=== PATIENT | female | born 1980 | race Caucasian/White ===

== ENCOUNTER 2017-06-28 18:47 | Emergency (ER) | payer MEDICAID, SELFPAY ==
[2017-06-28 18:48] VITALS: BP 130/69; PULSE 88; RESP 18; TEMP 37.2; O2SAT 96; BMI 43.0
--- NOTE | 2017-06-28 19:46 | RAD_ITS ---
STUDY: X-RAY - RIGHT ANKLE REASON FOR EXAM: Female, 37 years old. PT C/O RIGHT LEG INJURY THAT HAPPENED ON 06/15. PT WAS SEEN AT HOSPITAL IN [place] IMMEDIATELY AFTER FALL AND DIAGNOSED WITH TIBIA FRACTURE. PT WAS GIVEN WALKING BOOT AND STATES HER FOOT WON'T FIT IN IT ANYMORE. TECHNIQUE: 3 view(s) of the ankle. COMPARISON: None. FINDINGS: Normal visualized distal tibia. There is an oblique fracture of the distal fibula. Normal medial malleoli. Normal tibiotalar articulation and ankle mortise. There is a calcaneal spur. The visualized subtalar, talonavicular, calcaneocuboid and tarsal articulations are normal. There is soft tissue swelling around the ankle. RAD/Ankle min 3 Views IMPRESSION: There is an oblique fracture of the distal fibula. There is soft tissue swelling around the ankle. Electronically Signed: Mahin Ballard MD at 20:11 EDT , Service support ,
[2017-06-28] MEDS: Ibuprofen 200 MG Tablet 800 MG PO (19:56)
[2017-06-28] MEDS: HYDROcodone Bitartrate/Apap 5/325 Tablet PO (21:57)
--- NOTE | 2017-06-28 23:20 | ED.DCSUM_ITS ---
- ER Visit Summary Date of Service: 06/28/17 Chief Complaint: Right ankle pain History of Present Illness: The patient is a 37 F who presents with right ankle pain that has been getting worse over the past 2 weeks. Patient states she was diagnosed with a fracture of her ankle on June 15. Patient states that she was placed in a walking boot but the walking boot was not fitting properly. Patient states that she has been at home over the last 2 weeks but there has been family from out of town staying with her and children are bumping her ankle causing more pain. Patient states the pain is worse with any movement. Patient denies any paresthesias or weakness. Physical Examination: Vital signs are stable. Patient is afebrile. Patient is in no acute distress. Musculoskeletal exam reveals tenderness over the medial and lateral malleoli of the right ankle. There is no deformity noted. There is edema and ecchymosis noted. Range of motion was limited all motions of the right ankle secondary to pain. Sensation was intact to light touch in all digits. Capillary refill is less than 2 seconds in all digits. The remaining physical exam is within normal limits. Test Results: Trace of the right ankle revealed a fracture of the distal fibula. Emergency Department Course and Treatment: Patient was given a dose of [place] here. A well-padded Ortho-Glass sugar tong splint was applied to the right lower extremity. Patient was instructed to ice and elevate the right ankle. Patient was instructed to follow-up with her orthopedist as scheduled. Patient was given a prescription for a short course of [place]. Patient and family understood and were agreeable with the plan. All questions were answered. Disposition: Discharge home Impression: Right distal fibula fracture This note was generated with [employer] dictation software. It may contain incorrect words, spelling, and punctuation that were not noted in review of the chart prior to signing ED Disposition - Plan for ED Patient: Disposition: Home or Assisted Living Chief Complaint: Lower Extremity Injury Diagnosis: Fracture of distal end of right fibula Instructions: ED Fx Lower Ext Prescriptions: Hydrocodone Bitart/Apap 5-325 [[place] 5/325] 1 tab PO Q6H PRN PRN 5 Days #20 tab PRN Reason: Pain Referrals: Care Physician,No Primary [Primary Care Provider] -
[2017-06-28 23:33] VITALS: RESP 16
--- NOTE | 2017-06-28 23:34 | ED.RN ---
REVIEWED D/C INSTRUCTIONS, FOLLOW UP CARE, PRESCRIPTION, AND S/S THAT WOULD WARRANT A RETURN TO THE ED WITH PT. PT VERBALIZED AN UNDERSTANDING AND DENIES FURTHER QUESTIONS FOR THIS RN. PT SKIN P/W/D, RESP EVEN AND UNLABORED, PT A&O X 3, NO DISTRESS NOTED. PT ASSISTED OUT OF ED IN WHEELCHAIR.
== END 2017-06-28 23:35 | disposition home or self-care (01) ==
PROVIDERS: Emergency Provider Emergency Medicine
DX: S82.431A Displaced oblique fracture of shaft of right fibula, initial encounter for closed fracture (principal); X58.XXXA Exposure to other specified factors, initial encounter; Y93.9 Activity, unspecified; Y92.9 Unspecified place or not applicable; Y99.9 Unspecified external cause status; Z72.0 Tobacco use
CPT/HCPCS: 29515; 73610; 99283

== ENCOUNTER → 2017-07-01 09:31 | Outpatient (CLI) | payer MEDICAID, SELFPAY ==
--- NOTE | 2017-07-01 09:47 | RAD_ITS ---
STUDY: X-RAY - RIGHT TIBIA AND FIBULA REASON FOR EXAM: Female, 37 years old. Fracture TECHNIQUE: 2 view(s) of the tibia and fibula were obtained. COMPARISON: 06/28/2017 FINDINGS: Previously described distal fibular fracture has undergone closed reduction with placement of a fiberglass cast. Alignment is anatomic, follow-up recommended to assure complete osseous union RAD/Tibia & Fibula 2 Views IMPRESSION: Closed reduction of a previously noted distal fibular fracture. Alignment is anatomic, follow-up recommended to assure complete osseous union Electronically Signed: Herber John MD at 10:41 EDT , Service support ,
--- NOTE | 2017-07-01 09:48 | RAD_ITS ---
STUDY: X-RAY - RIGHT FOOT CLINICAL: Female, 37 years old. Pain and swelling, fracture TECHNIQUE: 3 view(s) of the foot. COMPARISON: None. FINDINGS: A previously noted oblique fracture in the distal fibula has undergone closed reduction with support of a fiberglass cast. Alignment at the fracture site is anatomic. Normal talus and tarsal bones. Calcaneal spurs Normal visualized subtalar, talonavicular, calcaneocuboid, tarsal and tarsometatarsal articulations. Normal metatarsi. Normal metatarsophalangeal joint of the great toe. Normal tibial and fibular sesamoid bones. Normal interphalangeal joint of the great toe. Normal phalanges of the great toe. Normal second through fifth metatarsophalangeal joints. Normal interphalangeal joints and phalanges of the lesser toes. The soft tissue structures are unremarkable. RAD/Foot min 3 Views IMPRESSION: Previously noted oblique fracture in the distal fibula has been stabilized with a fiberglass cast. Alignment at the fracture site is anatomic. Follow-up recommended to assure complete osseous union Calcaneal spurs No demonstrated foot fracture or significant joint space abnormality Electronically Signed: Herber John MD at 10:40 EDT , Service support ,
[2017-07-01 10:44] LABS: Vitamin D,25 Hydroxy 21.4 ng/mL (29.95-100.01)
== END ==
PROVIDERS: Visit Provider Podiatrist
DX: S82.401A Unspecified fracture of shaft of right fibula, initial encounter for closed fracture (principal); X58.XXXA Exposure to other specified factors, initial encounter; Y93.9 Activity, unspecified; Y92.9 Unspecified place or not applicable; Y99.9 Unspecified external cause status; E55.9 Vitamin D deficiency, unspecified
CPT/HCPCS: 36415; 73590; 73630; 82306